=== PATIENT | male | born 1965 | race American Indian/Alaskan Native ===

== ENCOUNTER 2016-10-30 05:51 | Emergency (ER) | payer MEDICARE ==
[2016-10-30 07:35] VITALS: BP 147/110
--- NOTE | 2016-10-30 09:42 | Emergency Department Report ---
ED ENT HPI - General Chief complaint: Dental/Oral Stated complaint: TOOTHACHE Time Seen by Provider: 10/30/16 08:57 Source: patient Mode of arrival: Ambulatory Limitations: No Limitations - History of Present Illness Initial comments: 50-year-old male past medical history asthma, bipolar disorder presents with complaint of toothache in right upper molar since yesterday. Patient states that tooth bothers him when he was chewing no recent dental work. Denies any fever or chills speaking in full sentences appears uncomfortable no visible facial swelling denies any pus or blood drainage from mouth no stridor no trismus denies any difficulty swallowing solids or liquids. No neck swelling reported by patient. MD complaint: tooth pain Onset/Timin -: days(s) Location: tooth # (3) 1 - Area of cavities, no palpable or visible abscess Severity scale (0 -10): 7 Quality: aching, sharp Consistency: constant Worsens with: eating Context- Dental: history of dental caries, poor dental care - Related Data Previous Rx's Medication Instructions Recorded Last Taken Type ALBUTEROL Inhaler [ProAir HFA 2 puff IH QID PRN #1 inhalation 07/05/14 05/09/15 Rx Inhaler] ALBUTEROL Inhaler [ProAir HFA 2 puff IH QID PRN #1 inhalation 05/09/15 Unknown Rx Inhaler] Albuterol *Only Ed* [Proventil 2.5 mg IH Q4H PRN 30 Days 05/09/15 Unknown Rx 0.5% NEBS] predniSONE [Deltasone] 20 mg PO QDAY #20 tab 05/09/15 Unknown Rx Ibuprofen [Motrin] 800 mg PO Q8HR PRN #30 tablet 05/11/15 Unknown Rx Permethrin 5% [Acticin 5% CREAM] 1 applicatio TP ONCE #1 tube 05/11/15 Unknown Rx hydrOXYzine PAMOATE [Vistaril] 25 mg PO Q6HR PRN #10 capsule 05/11/15 Unknown Rx traMADol [Ultram] 50 mg PO Q6HR PRN #14 tablet 05/11/15 Unknown Rx Albuterol Sulfate [Ventolin HFA] 2 puff IH Q4H PRN #1 hfa.aer.ad 05/21/15 Unknown Rx Azithromycin [Zithromax Z-TONY] 250 mg PO DAILY #6 tab 05/21/15 Unknown Rx Promethazine Dm [Phenergan Dm 5 ml PO Q6H PRN #120 ml 05/21/15 Unknown Rx 6.25/15 mg 5 ml] predniSONE [Deltasone] 20 mg PO TID #15 tab 05/21/15 Unknown Rx Famotidine [Pepcid] 20 mg PO BID #10 tablet 05/26/15 Unknown Rx Permethrin 5% [Acticin 5% CREAM] 1 applicatio TP ONCE #1 tube 05/26/15 Unknown Rx diphenhydrAMINE [Benadryl CAP] 50 mg PO Q8HR PRN #15 capsule 05/26/15 Unknown Rx predniSONE [Deltasone] 20 mg PO QDAY #3 tab 05/26/15 Unknown Rx Acetaminophen/Codeine [Tylenol #3] 1 tab PO Q6H PRN #12 tab 10/30/16 Unknown Rx Amoxicillin [Trimox CAP] 500 mg PO Q8H #30 capsule 10/30/16 Unknown Rx Benzocaine [Oral Pain Relief] 9.35 gm MM Q6H PRN #1 gel..gram. 10/30/16 Unknown Rx Chlorhexidine Mouthwash [Peridex] 118 ml MM BID #1 bottle 10/30/16 Unknown Rx Ibuprofen [Motrin] 600 mg PO Q8H PRN #25 tablet 10/30/16 Unknown Rx Allergies Allergy/AdvReac Type Severity Reaction Status Date / Time No Known Allergies Allergy Verified 05/21/15 11:56 ED Dental HPI - General Chief complaint: Dental/Oral Stated complaint: TOOTHACHE Time Seen by Provider: 10/30/16 08:57 Source: patient Mode of arrival: Ambulatory Limitations: No Limitations - Related Data Previous Rx's Medication Instructions Recorded Last Taken Type ALBUTEROL Inhaler [ProAir HFA 2 puff IH QID PRN #1 inhalation 07/05/14 05/09/15 Rx Inhaler] ALBUTEROL Inhaler [ProAir HFA 2 puff IH QID PRN #1 inhalation 05/09/15 Unknown Rx Inhaler] Albuterol *Only Ed* [Proventil 2.5 mg IH Q4H PRN 30 Days 05/09/15 Unknown Rx 0.5% NEBS] predniSONE [Deltasone] 20 mg PO QDAY #20 tab 05/09/15 Unknown Rx Ibuprofen [Motrin] 800 mg PO Q8HR PRN #30 tablet 05/11/15 Unknown Rx Permethrin 5% [Acticin 5% CREAM] 1 applicatio TP ONCE #1 tube 05/11/15 Unknown Rx hydrOXYzine PAMOATE [Vistaril] 25 mg PO Q6HR PRN #10 capsule 05/11/15 Unknown Rx traMADol [Ultram] 50 mg PO Q6HR PRN #14 tablet 05/11/15 Unknown Rx Albuterol Sulfate [Ventolin HFA] 2 puff IH Q4H PRN #1 hfa.aer.ad 05/21/15 Unknown Rx Azithromycin [Zithromax Z-TONY] 250 mg PO DAILY #6 tab 05/21/15 Unknown Rx Promethazine Dm [Phenergan Dm 5 ml PO Q6H PRN #120 ml 05/21/15 Unknown Rx 6.25/15 mg 5 ml] predniSONE [Deltasone] 20 mg PO TID #15 tab 05/21/15 Unknown Rx Famotidine [Pepcid] 20 mg PO BID #10 tablet 05/26/15 Unknown Rx Permethrin 5% [Acticin 5% CREAM] 1 applicatio TP ONCE #1 tube 05/26/15 Unknown Rx diphenhydrAMINE [Benadryl CAP] 50 mg PO Q8HR PRN #15 capsule 05/26/15 Unknown Rx predniSONE [Deltasone] 20 mg PO QDAY #3 tab 05/26/15 Unknown Rx Acetaminophen/Codeine [Tylenol #3] 1 tab PO Q6H PRN #12 tab 10/30/16 Unknown Rx Amoxicillin [Trimox CAP] 500 mg PO Q8H #30 capsule 10/30/16 Unknown Rx Benzocaine [Oral Pain Relief] 9.35 gm MM Q6H PRN #1 gel..gram. 10/30/16 Unknown Rx Chlorhexidine Mouthwash [Peridex] 118 ml MM BID #1 bottle 10/30/16 Unknown Rx Ibuprofen [Motrin] 600 mg PO Q8H PRN #25 tablet 03/26/17 Unknown Rx Allergies Allergy/AdvReac Type Severity Reaction Status Date / Time No Known Allergies Allergy Verified 05/21/15 11:56 ED Review of Systems ROS: Stated complaint: TOOTHACHE Other details as noted in HPI Constitutional: denies: chills, fever Eyes: denies: eye pain, eye discharge, vision change ENT: dental pain. denies: ear pain, throat pain Respiratory: denies: cough, shortness of breath, wheezing Cardiovascular: denies: chest pain, palpitations Endocrine: no symptoms reported Gastrointestinal: denies: abdominal pain, nausea, diarrhea Genitourinary: denies: urgency, dysuria Musculoskeletal: denies: back pain, joint swelling, arthralgia Skin: denies: rash, lesions Neurological: denies: headache, weakness, paresthesias Psychiatric: denies: anxiety, depression Hematological/Lymphatic: denies: easy bleeding, easy bruising ED Past Medical Hx - Past Medical History Previous Medical History?: Yes Hx Psychiatric Treatment: Yes (BIPOLAR/ DEPRESSION) Hx Asthma: Yes - Surgical History Past Surgical History?: No - Social History Smoking Status: Current Every Day Smoker Substance Use Type: Alcohol - Medications Home Medications: Home Medications Medication Instructions Recorded Confirmed Last Taken Type ALBUTEROL Inhaler [ProAir HFA 2 puff IH QID PRN #1 inhalation 07/05/14 05/09/15 05/09/15 Rx Inhaler] ALBUTEROL Inhaler [ProAir HFA 2 puff IH QID PRN #1 inhalation 05/09/15 Unknown Rx Inhaler] Albuterol *Only Ed* [Proventil 2.5 mg IH Q4H PRN 30 Days 05/09/15 Unknown Rx 0.5% NEBS] predniSONE [Deltasone] 20 mg PO QDAY #20 tab 05/09/15 Unknown Rx Ibuprofen [Motrin] 800 mg PO Q8HR PRN #30 tablet 05/11/15 Unknown Rx Permethrin 5% [Acticin 5% CREAM] 1 applicatio TP ONCE #1 tube 05/11/15 Unknown Rx hydrOXYzine PAMOATE [Vistaril] 25 mg PO Q6HR PRN #10 capsule 05/11/15 Unknown Rx traMADol [Ultram] 50 mg PO Q6HR PRN #14 tablet 05/11/15 Unknown Rx Albuterol Sulfate [Ventolin HFA] 2 puff IH Q4H PRN #1 hfa.aer.ad 05/21/15 Unknown Rx Azithromycin [Zithromax Z-TONY] 250 mg PO DAILY #6 tab 05/21/15 Unknown Rx Promethazine Dm [Phenergan Dm 5 ml PO Q6H PRN #120 ml 05/21/15 Unknown Rx 6.25/15 mg 5 ml] predniSONE [Deltasone] 20 mg PO TID #15 tab 05/21/15 Unknown Rx Famotidine [Pepcid] 20 mg PO BID #10 tablet 05/26/15 Unknown Rx Permethrin 5% [Acticin 5% CREAM] 1 applicatio TP ONCE #1 tube 05/26/15 Unknown Rx diphenhydrAMINE [Benadryl CAP] 50 mg PO Q8HR PRN #15 capsule 05/26/15 Unknown Rx predniSONE [Deltasone] 20 mg PO QDAY #3 tab 05/26/15 Unknown Rx Acetaminophen/Codeine [Tylenol #3] 1 tab PO Q6H PRN #12 tab 10/30/16 Unknown Rx Amoxicillin [Trimox CAP] 500 mg PO Q8H #30 capsule 10/30/16 Unknown Rx Benzocaine [Oral Pain Relief] 9.35 gm MM Q6H PRN #1 gel..gram. 10/30/16 Unknown Rx Chlorhexidine Mouthwash [Peridex] 118 ml MM BID #1 bottle 10/30/16 Unknown Rx Ibuprofen [Motrin] 600 mg PO Q8H PRN #25 tablet 10/30/16 Unknown Rx ED Physical Exam - General Limitations: No Limitations General appearance: alert, in no apparent distress - Head Head exam: Present: atraumatic, normocephalic - Eye Eye exam: Present: normal appearance, PERRL, EOMI - ENT ENT exam: Present: mucous membranes moist - Expanded ENT Exam Expanded Ear exam: Present: normal external inspection Mouth exam: Present: normal external inspection Teeth exam: Present: dental caries, dental tenderness # (tenderness around tooth #3 visible dental cavities at that tooth) Throat exam: Positive: normal inspection - Neck Neck exam: Present: normal inspection - Respiratory Respiratory exam: Present: normal lung sounds bilaterally. Absent: respiratory distress - Cardiovascular Cardiovascular Exam: Present: regular rate, normal rhythm. Absent: systolic murmur, diastolic murmur, rubs, gallop - GI/Abdominal GI/Abdominal exam: Present: soft, normal bowel sounds - Rectal Rectal exam: Present: deferred - Extremities Exam Extremities exam: Present: normal inspection - Back Exam Back exam: Present: normal inspection - Neurological Exam Neurological exam: Present: alert, oriented X3 - Psychiatric Psychiatric exam: Present: normal affect, normal mood - Skin Skin exam: Present: warm, dry, intact, normal color. Absent: rash ED Course Vital Signs 10/30/16 07:33 Temperature 98.5 F Pulse Rate 82 Respiratory 16 Rate Blood Pressure 147/110 O2 Sat by Pulse 100 Oximetry ED Medical Decision Making - Medical Decision Making A/P: Dental cavity 1-Motrin, Tylenol 3, amoxicillin 1 week, Peridex mouthwash 2-patient advised to follow up as soon as possible for dental cavity. I advised patient that lack of follow-up and untreated dental cavity can result in infection to come his face and jaw and if left untreated can progress to sepsis and become lethal. Patient understood these instructions and agreed to follow-up on outpatient basis with dentist as soon as possible. 3-advised to return to ED [facility] for any significant bleeding pus drainage from oral cavity inability to tolerate by mouth, dyspnea shortness of breath muffled voice and/or stridor Critical care attestation.: If time is entered above; I have spent that time in minutes in the direct care of this critically ill patient, excluding procedure time. ED Disposition Clinical Impression: Toothache Disposition: DISCHARGED TO HOME OR SELFCARE Is pt being admited?: No Does the pt Need Aspirin: No Condition: Stable Instructions: Dental Caries (ED), Toothache (ED) Prescriptions: Acetaminophen/Codeine [Tylenol #3] 1 tab PO Q6H PRN #12 tab PRN Reason: Toothache Amoxicillin [Trimox CAP] 500 mg PO Q8H #30 capsule Benzocaine [Oral Pain Relief] 9.35 gm MM Q6H PRN #1 gel..gram. PRN Reason: Toothache Chlorhexidine Mouthwash [Peridex] 118 ml MM BID #1 bottle Ibuprofen [Motrin] 600 mg PO Q8H PRN #25 tablet PRN Reason: Pain Referrals: ROXANE MORENO MD [Primary Care Provider] - 3-5 Days [facility] [Outside] - 3-5 Days Forms: Work/School Release Form(ED) Time of Disposition: :45
[2016-10-30] MEDS ORDERED: TYLENOL #3 PO ONE (09:57)
== END 2016-10-30 10:06 | disposition home or self-care (01) ==
LOC: ED 05:51
DX: K08.89 Other specified disorders of teeth and supporting structures (principal); F31.9 Bipolar disorder, unspecified; F32.9 Major depressive disorder, single episode, unspecified; J45.909 Unspecified asthma, uncomplicated; F17.200 Nicotine dependence, unspecified, uncomplicated
CPT/HCPCS: 99282

== ENCOUNTER 2017-04-16 09:05 | Emergency (ER) | payer MEDICARE ==
[2017-04-16 09:25] VITALS: BP 128/91
[2017-04-16] MEDS ORDERED: MOTRIN PO ONE (10:25)
[2017-04-16] MEDS ORDERED: BICILLIN L-A IM ONE (10:26)
--- NOTE | 2017-04-16 10:43 | Emergency Department Report ---
ED ENT HPI - General Chief complaint: Dental/Oral Stated complaint: TOOTHACHE Time Seen by Provider: 04/16/17 10:24 Source: patient Mode of arrival: Ambulatory Limitations: No Limitations - History of Present Illness MD complaint: tooth pain -: Gradual Quality: sharp Consistency: constant Improves with: none Worsens with: eating Associated Symptoms: toothache. denies: fever, cough, gum swelling, pain with swallowing, sore throat, tinnitus, hearing loss, discharge from ear, rhinorrhea - Related Data Previous Rx's Medication Instructions Recorded Last Taken Type ALBUTEROL Inhaler [ProAir HFA 2 puff IH QID PRN #1 inhalation 07/05/14 05/09/15 Rx Inhaler] ALBUTEROL Inhaler [ProAir HFA 2 puff IH QID PRN #1 inhalation 05/09/15 Unknown Rx Inhaler] Albuterol *Only Ed* [Proventil 2.5 mg IH Q4H PRN 30 Days 05/09/15 Unknown Rx 0.5% NEBS] predniSONE [Deltasone] 20 mg PO QDAY #20 tab 05/09/15 Unknown Rx Ibuprofen [Motrin] 800 mg PO Q8HR PRN #30 tablet 05/11/15 Unknown Rx Permethrin 5% [Acticin 5% CREAM] 1 applicatio TP ONCE #1 tube 05/11/15 Unknown Rx hydrOXYzine PAMOATE [Vistaril] 25 mg PO Q6HR PRN #10 capsule 05/11/15 Unknown Rx traMADol [Ultram] 50 mg PO Q6HR PRN #14 tablet 05/11/15 Unknown Rx Albuterol Sulfate [Ventolin HFA] 2 puff IH Q4H PRN #1 hfa.aer.ad 05/21/15 Unknown Rx Azithromycin [Zithromax Z-TONY] 250 mg PO DAILY #6 tab 05/21/15 Unknown Rx Promethazine Dm [Phenergan Dm 5 ml PO Q6H PRN #120 ml 05/21/15 Unknown Rx 6.25/15 mg 5 ml] predniSONE [Deltasone] 20 mg PO TID #15 tab 05/21/15 Unknown Rx Famotidine [Pepcid] 20 mg PO BID #10 tablet 05/26/15 Unknown Rx Permethrin 5% [Acticin 5% CREAM] 1 applicatio TP ONCE #1 tube 05/26/15 Unknown Rx diphenhydrAMINE [Benadryl CAP] 50 mg PO Q8HR PRN #15 capsule 05/26/15 Unknown Rx predniSONE [Deltasone] 20 mg PO QDAY #3 tab 05/26/15 Unknown Rx Acetaminophen/Codeine [Tylenol #3] 1 tab PO Q6H PRN #12 tab 10/30/16 Unknown Rx Amoxicillin [Trimox CAP] 500 mg PO Q8H #30 capsule 10/30/16 Unknown Rx Benzocaine [Oral Pain Relief] 9.35 gm MM Q6H PRN #1 gel..gram. 10/30/16 Unknown Rx Chlorhexidine Mouthwash [Peridex] 118 ml MM BID #1 bottle 10/30/16 Unknown Rx Ibuprofen [Motrin] 600 mg PO Q8H PRN #25 tablet 10/30/16 Unknown Rx Amoxicillin [Trimox CAP] 500 mg PO BID #20 capsule 04/16/17 Unknown Rx Ibuprofen [Motrin] 800 mg PO Q8HR PRN #30 tablet 04/16/17 Unknown Rx Allergies Allergy/AdvReac Type Severity Reaction Status Date / Time No Known Allergies Allergy Verified 05/21/15 11:56 ED Dental HPI - General Chief complaint: Dental/Oral Stated complaint: TOOTHACHE Time Seen by Provider: 04/16/17 10:24 Source: patient Mode of arrival: Ambulatory Limitations: No Limitations - Related Data Previous Rx's Medication Instructions Recorded Last Taken Type ALBUTEROL Inhaler [ProAir HFA 2 puff IH QID PRN #1 inhalation 07/05/14 05/09/15 Rx Inhaler] ALBUTEROL Inhaler [ProAir HFA 2 puff IH QID PRN #1 inhalation 05/09/15 Unknown Rx Inhaler] Albuterol *Only Ed* [Proventil 2.5 mg IH Q4H PRN 30 Days 05/09/15 Unknown Rx 0.5% NEBS] predniSONE [Deltasone] 20 mg PO QDAY #20 tab 05/09/15 Unknown Rx Ibuprofen [Motrin] 800 mg PO Q8HR PRN #30 tablet 05/11/15 Unknown Rx Permethrin 5% [Acticin 5% CREAM] 1 applicatio TP ONCE #1 tube 05/11/15 Unknown Rx hydrOXYzine PAMOATE [Vistaril] 25 mg PO Q6HR PRN #10 capsule 05/11/15 Unknown Rx traMADol [Ultram] 50 mg PO Q6HR PRN #14 tablet 05/11/15 Unknown Rx Albuterol Sulfate [Ventolin HFA] 2 puff IH Q4H PRN #1 hfa.aer.ad 05/21/15 Unknown Rx Azithromycin [Zithromax Z-TONY] 250 mg PO DAILY #6 tab 05/21/15 Unknown Rx Promethazine Dm [Phenergan Dm 5 ml PO Q6H PRN #120 ml 05/21/15 Unknown Rx 6.25/15 mg 5 ml] predniSONE [Deltasone] 20 mg PO TID #15 tab 05/21/15 Unknown Rx Famotidine [Pepcid] 20 mg PO BID #10 tablet 05/26/15 Unknown Rx Permethrin 5% [Acticin 5% CREAM] 1 applicatio TP ONCE #1 tube 05/26/15 Unknown Rx diphenhydrAMINE [Benadryl CAP] 50 mg PO Q8HR PRN #15 capsule 05/26/15 Unknown Rx predniSONE [Deltasone] 20 mg PO QDAY #3 tab 05/26/15 Unknown Rx Acetaminophen/Codeine [Tylenol #3] 1 tab PO Q6H PRN #12 tab 10/30/16 Unknown Rx Amoxicillin [Trimox CAP] 500 mg PO Q8H #30 capsule 10/30/16 Unknown Rx Benzocaine [Oral Pain Relief] 9.35 gm MM Q6H PRN #1 gel..gram. 10/30/16 Unknown Rx Chlorhexidine Mouthwash [Peridex] 118 ml MM BID #1 bottle 10/30/16 Unknown Rx Ibuprofen [Motrin] 600 mg PO Q8H PRN #25 tablet 10/30/16 Unknown Rx Amoxicillin [Trimox CAP] 500 mg PO BID #20 capsule 04/16/17 Unknown Rx Ibuprofen [Motrin] 800 mg PO Q8HR PRN #30 tablet 04/16/17 Unknown Rx Allergies Allergy/AdvReac Type Severity Reaction Status Date / Time No Known Allergies Allergy Verified 05/21/15 11:56 ED Review of Systems ROS: Stated complaint: TOOTHACHE Other details as noted in HPI Comment: All other systems reviewed and negative Constitutional: no symptoms reported, see HPI. denies: chills, fever Eyes: as per HPI. denies: eye pain ENT: as per HPI, dental pain. denies: ear pain, throat pain Respiratory: no symptoms reported, see HPI. denies: cough, orthopnea Cardiovascular: as per HPI. denies: chest pain, palpitations, dyspnea on exertion, orthopnea Endocrine: no symptoms reported, see HPI. denies: excessive sweating, flushing , intolerance to cold, intolerance to heat Gastrointestinal: as per HPI. denies: abdominal pain, nausea, vomiting Genitourinary: as per HPI. denies: urgency, dysuria Musculoskeletal: as per HPI. denies: back pain Skin: as per HPI. denies: rash, lesions Neurological: as per HPI. denies: headache, weakness Psychiatric: as per HPI. denies: anxiety, depression Hematological/Lymphatic: as per HPI. denies: easy bleeding ED Past Medical Hx - Past Medical History Hx Psychiatric Treatment: Yes (BIPOLAR/ DEPRESSION) Hx Asthma: Yes Additional medical history: only meds are his zoloft, abilify. other meds in record are not correct or reconciled - Surgical History Past Surgical History?: No - Social History Smoking Status: Current Every Day Smoker Substance Use Type: None - Medications Home Medications: Home Medications Medication Instructions Recorded Confirmed Last Taken Type ALBUTEROL Inhaler [ProAir HFA 2 puff IH QID PRN #1 inhalation 07/05/14 05/09/15 05/09/15 Rx Inhaler] ALBUTEROL Inhaler [ProAir HFA 2 puff IH QID PRN #1 inhalation 05/09/15 Unknown Rx Inhaler] Albuterol *Only Ed* [Proventil 2.5 mg IH Q4H PRN 30 Days 05/09/15 Unknown Rx 0.5% NEBS] predniSONE [Deltasone] 20 mg PO QDAY #20 tab 05/09/15 Unknown Rx Ibuprofen [Motrin] 800 mg PO Q8HR PRN #30 tablet 05/11/15 Unknown Rx Permethrin 5% [Acticin 5% CREAM] 1 applicatio TP ONCE #1 tube 05/11/15 Unknown Rx hydrOXYzine PAMOATE [Vistaril] 25 mg PO Q6HR PRN #10 capsule 05/11/15 Unknown Rx traMADol [Ultram] 50 mg PO Q6HR PRN #14 tablet 05/11/15 Unknown Rx Albuterol Sulfate [Ventolin HFA] 2 puff IH Q4H PRN #1 hfa.aer.ad 05/21/15 Unknown Rx Azithromycin [Zithromax Z-TONY] 250 mg PO DAILY #6 tab 05/21/15 Unknown Rx Promethazine Dm [Phenergan Dm 5 ml PO Q6H PRN #120 ml 05/21/15 Unknown Rx 6.25/15 mg 5 ml] predniSONE [Deltasone] 20 mg PO TID #15 tab 05/21/15 Unknown Rx Famotidine [Pepcid] 20 mg PO BID #10 tablet 05/26/15 Unknown Rx Permethrin 5% [Acticin 5% CREAM] 1 applicatio TP ONCE #1 tube 05/26/15 Unknown Rx diphenhydrAMINE [Benadryl CAP] 50 mg PO Q8HR PRN #15 capsule 05/26/15 Unknown Rx predniSONE [Deltasone] 20 mg PO QDAY #3 tab 05/26/15 Unknown Rx Acetaminophen/Codeine [Tylenol #3] 1 tab PO Q6H PRN #12 tab 10/30/16 Unknown Rx Amoxicillin [Trimox CAP] 500 mg PO Q8H #30 capsule 10/30/16 Unknown Rx Benzocaine [Oral Pain Relief] 9.35 gm MM Q6H PRN #1 gel..gram. 10/30/16 Unknown Rx Chlorhexidine Mouthwash [Peridex] 118 ml MM BID #1 bottle 10/30/16 Unknown Rx Ibuprofen [Motrin] 600 mg PO Q8H PRN #25 tablet 10/30/16 Unknown Rx Amoxicillin [Trimox CAP] 500 mg PO BID #20 capsule 04/16/17 Unknown Rx Ibuprofen [Motrin] 800 mg PO Q8HR PRN #30 tablet 04/16/17 Unknown Rx ED Physical Exam - General Limitations: No Limitations General appearance: alert - Head Head exam: Present: atraumatic - Eye Eye exam: Present: PERRL Pupils: Present: normal accommodation - ENT ENT exam: Present: mucous membranes moist - Expanded ENT Exam Expanded Mouth exam: Present: normal external inspection, tongue normal. Absent: drooling, trismus, muffled voice, tongue elevation Teeth exam: Present: dental caries 1 - Other (caries) 2 - Other (caries) Throat exam: Positive: normal inspection - Neck Neck exam: Present: normal inspection - Respiratory Respiratory exam: Present: normal lung sounds bilaterally - Cardiovascular Cardiovascular Exam: Present: regular rate - GI/Abdominal GI/Abdominal exam: Present: soft, normal bowel sounds - Rectal Rectal exam: Present: deferred - exam: Present: normal inspection - Extremities Exam Extremities exam: Present: normal inspection - Back Exam Back exam: Present: normal inspection - Neurological Exam Neurological exam: Present: alert, oriented X3 - Psychiatric Psychiatric exam: Present: normal affect, normal mood - Skin Skin exam: Present: warm, dry, intact ED Course Vital Signs 04/16/17 09:21 Temperature 98.3 F Pulse Rate 81 Respiratory 16 Rate Blood Pressure 128/91 O2 Sat by Pulse 99 Oximetry - Reevaluation(s) Reevaluation #1: 04/16/17 10:58 vss taking po diffuse caries Critical care attestation.: If time is entered above; I have spent that time in minutes in the direct care of this critically ill patient, excluding procedure time. ED Disposition Clinical Impression: Dental caries Disposition: DC-01 TO HOME OR SELFCARE Is pt being admited?: No Does the pt Need Aspirin: No Condition: Stable Instructions: Dental Caries (ED) Additional Instructions: DMD [facility] Prescriptions: Amoxicillin [Trimox CAP] 500 mg PO BID #20 capsule Ibuprofen [Motrin] 800 mg PO Q8HR PRN #30 tablet PRN Reason: Pain Referrals: [facility] [Outside[facility] - 3-5 Days [facility] [Outside] - 3-5 Days [facility] [Outside] - 3-5 Days Time of Disposition: 10:40
== END 2017-04-16 11:05 | disposition home or self-care (01) ==
LOC: ED 09:05
DX: K02.9 Dental caries, unspecified (principal); F31.9 Bipolar disorder, unspecified; J45.909 Unspecified asthma, uncomplicated; F17.200 Nicotine dependence, unspecified, uncomplicated
CPT/HCPCS: 96372; 99282; J0561